=== PATIENT | male | born 1940 | race Caucasian/White ===

== ENCOUNTER 2018-11-15 06:27 | Inpatient (IN) | payer MEDICARE, SELFPAY ==
[2018-11-01 08:39] VITALS: BMI 25.0
[2018-11-15] VITALS (13 sets, daily range): BP systolic 92–122; BP diastolic 58–78; PULSE 71–99; RESP 14–18; TEMP 36.1–36.7; O2SAT 91–99; BMI 25.0; BMI 26.9
--- NOTE | 2018-11-15 06:32 | DI.RAD.S_ITS ---
PROCEDURE: XR HIP W PEL IF DONE RT 2V INDICATIONS: prosthesis placement RIGHT HIP TECHNIQUE: AP pelvis was acquired. COMPARISON: None. FINDINGS: Bones: Patient is status post right hip arthroplasty, with hardware components in expected positions. The hip joint appears congruent. The visualized bony structures appear intact. Soft tissues: Overlying postoperative changes are noted. No suspicious soft tissue densities. IMPRESSION: Post right total hip arthroplasty with anatomic right hip alignment. Dictated by: Iker Conway M.D. on 11/15/2018 at 10:04 Approved by: Iker Conway M.D. on 11/15/2018 at 10:04
[2018-11-15] MEDS: LACTATED RINGERS 1,000 ML 42 ML IV ×2 (07:10→09:06)
[2018-11-15] MEDS: CELECOXIB 200 MG CAPSULE PO (07:15)
[2018-11-15] MEDS: PREGABALIN 75 MG CAPSULE PO (07:15)
[2018-11-15] MEDS: ACETAMINOPHEN 325 MG TABLET 975 MG PO (07:15)
[2018-11-15] MEDS: CEFAZOLIN 2 GM/100 ML FROZ.PIGGY IV ×3 (07:57→23:50)
--- NOTE | 2018-11-15 07:58 | PM.PREOP ---
Pre-operative Note Interval Note History & Physical reviewed/Exam performed by Physician: Yes Changes to H&P: No
[2018-11-15] MEDS: TRANEXAMIC ACID 1,000 MG VIAL 1000 MG INJ ×2 (08:21→09:22)
--- NOTE | 2018-11-15 08:31 | SUR.OPER ---
Lateral on padded OR bed. Gel axillary roll. Arms secured on padded armboard with pillow supporting top arm. Padded hip positioner braces x4 - anterior and posterior chest and pelvis. Additional gel pad used anterior pelvis. Gel pad under bottom leg from knee to foot and secured with tape over sheet.
[2018-11-15] MEDS: BUPIVACAINE 0.25% W/ EPI VIAL 50 ML INJ (08:37)
--- NOTE | 2018-11-15 09:59 | PC.NURSE ---
Day shift: Has not been on AC unit yet.
--- NOTE | 2018-11-15 10:10 | P.OP_ITS ---
Operative Date/Time/Diagnoses Date of procedure: 11/15/18 Time of procedure: 10:06 Pre-op diagnosis: Right hip degenerative joint disease Post-op diagnosis: same Procedure & Clinicians Procedure: Right total hip arthroplasty (CPT code 00526 with assistant gm of content & delivery) Same procedure as scheduled: Yes Indications: Patient is an 78-year-old male with severe right hip DJD. The patient has pain with activities and at rest, limited ambulation and activity tolerance, difficulties with ADLs, and failure of conservative treatment. We have discussed the nature of condition, treatment options, risks and benefits, and patient elects to proceed with total hip arthroplasty and gives informed consent. Surgeon: Ravin Meredith Health Care Coordinator: Subhash Petty Anesthesia Type: General and Spinal Operative Notes Closure Type: primary Specimen(s): none sent Implants & Drains: Acetabulum: [employer] R3 acetabular component size 54 mm Femoral component: [employer] Anthology stem size 8 with standard offset Femoral head: 36 mm + 0 cobalt chrome Estimated Blood Loss (mL): 100 Blood products transfused: none Procedure in detail: After satisfaction induction of anesthetic, and administration of IV antibiotics, the patient was positioned in the lateral decubitus position with all bony prominences well padded and pelvic position secured using a hip garage laborer positioning device. Right hip and lower extremity prepped and draped in the usual sterile fashion, 1st dose of intravenous tranexamic acid was administered, then a longitudinal incision was created centered over the greater trochanter and carried sharply through the skin and subcutaneous tissues down to the fascia farrukh which was divided longitudinally and retracted with a Charnley retractor. External rotators visualize, cut, tagged, and retracted posteriorly, then the capsule was cut in a T-type fashion with the corners tagged and retracted. Hip was dislocated and femoral neck cut made according to preoperative templating. Acetabular retractors then placed, and the acetabular labrum and osteophytes were excised. The acetabulum was then sequentially reamed to 53 mm with an excellent circumferential ream and fit with the trial. The trial component was removed and a permanent size 54 mm Lawrence [employer]hew R3 acetabular component was selected, positioned, and impacted with satisfactory position and fixation achieved. Permanent liner was then inserted with the elevated lip directed posteriorly. Soft tissue then removed off the lateral femoral neck in the lateral neck was entered using a box osteotome. T-handled reamers placed down the canal followed by sequential broaching to 8 with the final broach left in place for trial reduction which demonstrated excellent leg length, range of motion, and stability characteristics with a 36 mm +0 trial ball. The trial and broach were removed, and a permanent size 8 [employer] Anthology stem was selected and inserted with excellent position and fixation achieved. Another trial reduction yielded the above characteristics so the trial ball was exchanged for a permanent 36 mm +0 cobalt chrome ball. The hip was irrigated and reduced and excellent leg length range of motion and stability characteristics were achieved and maintained. Periarticular tissues were infiltrated with Marcaine. The hip was copiously irrigated, and the capsule repaired with #2 Ethibond, and the piriformis was repaired back to the greater trochanter with the same. Fascia farrukh closed with interrupted #1 Ethibond sutures, and the subcutaneous tissues were closed in 2 layers of 0 Vicryl and 2 0 Vicryl. Skin was closed with mary alice and sterile dressings applied. Second dose of tranexamic acid was administered intravenously, and the anesthetic was terminated. Complications: none Condition: stable Disposition: PACU Plan for aftercare: Patient will be admitted to the acute care [facility], and anticipate discharge on postop day 1 with follow-up in office in 10-14 days. Outpatient physical therapy will be arranged and patient will continue to observe posterior hip precautions. Patient will continue use of postoperative Lovenox for 10 days postop.
--- NOTE | 2018-11-15 10:27 | PC.NURSE ---
Day shift: Arrived on unit at approx 1015 from PACu. A&Ox3. Spouse at bedside for support. VS WNL. CMS ok. PPP. Oriented to room and call light. Denies pain. Using I.S. as direct. He is ROSE PATH. Call light in reach. Agrees to not get OOB w/o help from staff.+
[2018-11-15] MEDS: LACTATED RINGERS 1,000 ML 125 ML IV ×2 (10:39→19:08)
--- NOTE | 2018-11-15 17:45 | PT.IIE ---
Current Diagnoses Unilateral primary osteoarthritis, right hip (11/15/18) Surgery Performed Operation Date: 11/15/18 07:45 Actual Procedures p Total Hip Arthroplasty(Right) - Ravin Meredith MD Surgical History (Last Updated 11/01/18 @ 09:26 by Eri Moreno RN) Hx of laminectomy (Acute) Hx of appendectomy (Acute) Hx of cholecystectomy (Acute) Hx of right inguinal hernia repair (Acute 09/06/18) Hx of tonsillectomy (Acute) Hx of transurethral resection of prostate (Acute) Status post cataract extraction of both eyes with insertion of intraocular lens (Acute) Medical History (Last Updated 11/01/18 @ 09:26 by Eri Moreno RN) Anxiety (Acute) Arthritis (Acute) Asthma (Acute) 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 (Acute) Depression (Acute) Elevated PSA (Acute) Impaired hearing (Acute) Nocturia associated with benign prostatic hyperplasia (Acute) Numbness (Acute) Pneumonia (Acute) Prostate cancer (Acute ~10/2010) Sleep disturbance (Acute) Syncope (Acute ~2012) Thinning of skin (Acute) Physical Therapy Inpatient Evaluation/Re-Eval M1 PT/OT-IP Prior Functional Status Start: 11/15/18 17:16 Freq: NEEDED Status: Active Protocol: Document 11/15/18 15:10 (Rec: 11/15/18 17:44 [email or web address]) Medical Review Prior Functional Status Medical History Reviewed Yes Communication no deficits noted Mobility and Gait pt is an indepedent ambulator at home and community without use of AD Activities of Daily Living and IADL's pt is indepedent for all ADLs and IADLs without use of AD. Social History Household Members spouse Living Arrangements House Number of Floors (Floors) One Floor Number of Stairs To Enter/Railing? 1 ALVARO and no stairs Home Environment Standard Height Toilet Walk in Shower Tub/Shower Home Equipment Front Wheel Walker Grab Bars Near Toilet Grab Bars In Shower Employment Status Retired Additional Social History Comment Pt lives with his at a 1 story house with 1STE. Pt is an independent ambulator at home and community without the need of AD. Pt and Pt's are both independent for ADLs and IADLs. But pt's uses a FWW for mobility due to LLD from hip replacement. Pt reports he might need to be CG if his 's mobility decline in the future. Pt also drives at this point. Pt expects to return to his outpatient PT , where he did his preop rehab, for post op rehab. M2 PT-IP Current Condition Start: 11/15/18 17:16 Freq: NEEDED Status: Active Protocol: Document 11/15/18 15:10 (Rec: 11/15/18 17:44 [email or web address]) Physical Therapy Current Condition Current Condition Evaluation Date 11/15/18 Treatment Diagnosis R RUTHIE, difficulty in walking, generalized muscle weakness Onset Date 11/15/18 Precautions Posterior Hip Precautions No Hip Flexion > 90 degrees No Hip Internal Rotation No Hip Adduction Weight Bearing Status Weight Bearing Status Weight Bear as Tolerated M3 PT-IP Subjective Start: 11/15/18 17:16 Freq: NEEDED Status: Active Protocol: Document 11/15/18 15:10 HH (Rec: 11/15/18 17:44 [email or web address]) Subjective Physical Therapy Visit Type Type Initial Evaluation Visit Start Time 15:10 Visit Stop Time 15:40 Total Visit Minutes 30 Notes Pt agreeable to mobilize with PT. Pt denies pain and ready to mobilize upon assessment. Pt was seen in bed with pillow between his LEs. Number of RISK MANAGEMENT CONSULTANT Visits 0 Physical Therapy Visit Comments Patient Comments I feel great and i dont feel any pain at all. Patient Goals To amb again and go home to retun to his previous outpatient PT for post op rehab Therapy Pain Assessment Pain When Pain Assessed During Exercise Pain Present Pain Present Denied Pain M4 PT-IP Mobility and Gait Start: 11/15/18 17:16 Freq: NEEDED Status: Active Protocol: Document 11/15/18 15:10 HH (Rec: 11/15/18 17:44 [email or web address]) PT-Bed Mobility Assessment Supine to Sit Supine to Sit Standby Assistance 1 Person Assistance Head of Bed Elevated Sit to Supine Sit to Supine Standby Assistance 1 Person Assistance Head of Bed Elevated Scooting Scooting to Edge of Bed Standby Assistance Scooting Up and Down in Bed Standby Assistance PT-Transfer Assessment Sit to and From Stand Sit to and from Stand Standby Assistance 1 Person Assistance Use of Upper Extremities Equipment Transfer Assistive Device Bed Rail Gait Belt Front Wheeled Walker Transfers Transfer Destination Bed Chair Toilet Transfer Technique Stand Step Pivot Transfer Ability Level of Assist Standby Assistance Comments Mobility Comments Pt requested to go to bathroom due to urge of voiding. Pt first performed supine to sit at EOB with the use of bed rails SBA. He then stand up and amb to bathroom and maintain static standing with a FWW for 5 mins SBA. Pt did not void at the end but he was able to maintain upright posture without LOB and signs of acute distress. Pt demonstrates understanding of post op precautions. He was able to sit to stand and stand to sit with a stagger stance without excessive R hip flexion. Pt navin transfer very well and denied pain at the end of tx session Gait Assessment Gait Gait Assistance Required: Standby Assistance 1 Person Assist Distance (Feet) 30 Able to Maintain Weight Bearing Status Yes During Gait Assistive Devices Assistive Device Gait Belt Standard Walker Gait Deviations General Gait Pattern Antalgic Decreased Stride Length Decreased Feet Clearance Step-to Gait Factors Limiting Gait Function Factors Limiting Gait Function Decreased Activity Tolerance Decreased Strength Limited Range of Motion Pain Comments Gait Comments Pt amb from EOB to bathroom for toileting, then back to room door and bedside chair x 3 rounds with without rest. Pt denies pain before and after tx session. Pt demonstrates step to gait pattern along with decreased stride length and feet clearance. Pt does require cues to facilitate even weight distribution along with heel strikes during initial contact. Pt appears navin tx well without signs of acute distress and pain. Stair Climbing Assessment Comments Stair Climbing Comments did not attempt PT-Balance Assessment Sitting Balance and Reactions Static Sitting Balance Ability Normal Dynamic Sitting Balance Ability Normal Standing Balance and Reactions Static Standing Balance Ability Good Dynamic Standing Balance Ability Good M5 PT-IP Objective Assessments Start: 11/15/18 17:16 Freq: NEEDED Status: Active Protocol: Document 11/15/18 15:10 (Rec: 11/15/18 17:44 [email or web address]) Orientation Orientation/Cognition Level of Alertness Alert Orientation Name Age Birthday Month Date Year Day of Week Place Situation Language Function Ability No Deficits Noted Safety Awareness Understands Safety Issues Memory Description No Deficits Noted Gross Range of Motion Upper Extremity ROM Assessment Within Functional Limits Lower Extremity ROM Assessment Right Impaired Strength Upper Extremity Strength Assessment Within Functional Limits Lower Extremity Strength Assessment Right Impaired Comments Strength Comments 3+/5 L hip MMT grossly Coordination Assessment Gross Coordination Gross Coordination WNL Sensation Assessment Sensation Gross Sensation WNL M6 PT-IP Treatment Start: 11/15/18 17:16 Freq: NEEDED Status: Active Protocol: Document 11/15/18 15:10 (Rec: 11/15/18 17:44 [email or web address]) Physical Therapy Treatment Exercises Exercises Ankle Pumps Gluteal Sets Quad Sets Heel Slides Straight Leg Raises Education Education Provided Precautions Weight Bearing Status Post-Op Packet Safety M7 PT-IP Assessment and Plan Start: 11/15/18 17:16 Freq: NEEDED Status: Active Protocol: Document 11/15/18 15:10 (Rec: 11/15/18 17:44 [email or web address]) PT Summary Assessment and Plan Potential Rehabilitation Potential Excellent Status of Condition at Evaluation Stable Summary Impairments Pain ROM Strength Balance Bed Mobility Transfers Gait Activity Tolerance Assessment Summary Pt is a very plesant and motivated 78 yo male who is post op R RUTHIE day 1. Upon assessment, Pt presents a very good understanding post op precautions and transfer techniques since he was a CG for his 's RUTHIE surgery. Pt presents slight difficulty in walking due to post op, but he is able to amb and transfer as navin without c/o pain today with SBA x 1p grossly. Pt does require cues for even weight distribution and R heel strikes during intial contact to optimaze gait efficiency. Pt will benefit from skilled PT to cont focus on gait training, transfer training and post op education. At this point, recommend d/c to home with outpatient PT for post op rehab due to his current WFL mobility and high PLOF. Goals Bed Mobility Goal Independent Transfer Goal Independent Gait Goal Independent Gait Distance 100 Other Goals navin 3 ALVARO with handrails without signs of LOB Days to Meet Goals 3 Frequency of Treatment Frequency Of Treatment Twice a Day Treatment Plan Physical Therapy Treatment Plan Bed Mobility Training Transfer Training Gait Training Therapeutic Exercise Balance Retraining Post Op Education Discharge Planning Hot or Cold Pack Other Recommendations and Next Treatment transfer, gait training as navin Focus facilitate heel strike on R LE Recommendations To Nursing Amount of Assist Needed Standby Assistance 1 Person Assist Discharge Recommendations PT Discharge Recommendations Home Outpatient PT
[2018-11-15] MEDS: TAMSULOSIN 0.4 MG CAPSULE 0.8 MG PO (20:41)
[2018-11-15] MEDS: TRAZODONE 50 MG TABLET PO (20:42)
[2018-11-15] MEDS: LORATADINE 10 MG TABLET PO (20:42)
[2018-11-15] MEDS: buPROPion 100 MG TABLET PO (20:42)
[2018-11-15] MEDS: ALPRAZolam 0.5 MG TABLET PO (20:43)
--- NOTE | 2018-11-16 02:30 | PC.NURSE ---
Manager Regional Note: 0010: Awake, resting in bed. Vital signs stable. Pt denies pain at this time. Assisted up to bathroom with walker, and was steady on his feet, tolerated activity well. IV in place in lt forearm with LR infusing at 125cc/hr. SCDs on. Bulky dressing to rt hip is cdi.
[2018-11-16] MEDS: LACTATED RINGERS 1,000 ML 125 ML IV (04:12)
[2018-11-16 04:46] VITALS: BP 102/61; PULSE 90; RESP 18; TEMP 36.4; O2SAT 98
[2018-11-16 05:57] LABS: Hematocrit 37.1 % (41-53); Hemoglobin 13.5 g/dL (13.5-17.5)
--- NOTE | 2018-11-16 07:29 | PM.DS.1 ---
History of Present Illness Date Patient Seen: 11/16/18 Time Patient Seen: 07:29 Chief complaint: right hip [id number] Narrative: Pain was 1/10 over night now to over 10. Denies fever chills. Has been up ambulating in the room. Patient was able to urinate on his own. Patient's is available to assist him at home. Patient does wish to go home today if safe to do so. Denies fever chills. No nausea vomiting. Discharge Providers Date of admission: 11/15/18 06:27 Primary care physician: Curt Miller MD Consults: 11/15/18 06:32 Consult to Anesthesiology Routine Comment: Consulting Provider: Anesthesiologist Reason for consultation: Regional block for post operative pain control 11/15/18 10:26 Consult to Discharge Planning Routine Comment: Consult to Physical Therapy Evaluate & Treat Comment: Physician Instructions: post op RUTHIE protocol Consult to Respiratory Therapy Evaluate & Treat Comment: Physician Instructions: Evaluate and treat Discharge provider: Subhash Petty PA-C Discharge Date: 11/16/18 Summary Discharge Diagnosis: Status post right total hip arthroplasty Hospital Course: Patient is an 78-year-old male with severe right hip DJD. The patient has pain with activities and at rest, limited ambulation and activity tolerance, difficulties with ADLs, and failure of conservative treatment. We have discussed the nature of condition, treatment options, risks and benefits, and patient elects to proceed with total hip arthroplasty and gives informed consent. Patient taken to the operating room underwent spinal general anesthesia. Right total hip arthroplasty completed without complication. Patient back in his room recovering well as in stable condition. Status at Discharge Functional status at discharge: uses cane/walker Overall status at discharge: patient is progressing back to baseline Time Spent with Patient Less than 30 minutes Exam Vital Signs (past 8 hours): - 11/15/18 23:53 11/16/18 04:46 Temperature 98.0 F 97.6 F Pulse Rate 99 H 90 Respiratory Rate 18 18 Blood Pressure 122/71 102/61 Pulse Oximetry 97 98 Oxygen Delivery Method Room Air Oxygen Flow Rate 0 Narrative Exam Narrative: Pleasant 78-year-old male resting comfortably in bed in no apparent distress. Right hip dressing is clean, dry and intact. Neurovascular status is intact to the distal right lower extremity. Objective Labs Result Diagrams: 11/16/18 05:28 Labs: Laboratory Results - last 24 hr 11/16/18 05:28 Hgb 13.5 Hct 37.1 L Discharge Plan Discharge Plan Patient Disposition: Home Discharge comment: DC home today after PT Discharge Med Rec/Prescriptions Prescriptions: Continue trazodone 50 mg Tablet 50 mg PO BEDTIME RF: 0 bupropion HCl 100 mg Tablet 100 mg PO BID RF: 0 alprazolam 0.5 mg Tablet 0.5 mg PO BEDTIME RF: 0 tamsulosin 0.4 mg Capsule 0.8 mg PO BEDTIME RF: 0 fluticasone 50 mcg/actuation [place],Suspension 2 spray INTRANASAL BID RF: 0 loratadine [Allerclear] 10 mg Tablet 10 mg PO BID RF: 0 fluticasone-salmeterol [Advair Diskus] 250-50 mcg/dose Blister With Device 1 inh INHALATION BID RF: 0 albuterol sulfate 90 mcg/actuation Hfa Aerosol Inhaler 2 puff INHALATION BID RF: 0 Discontinued ibuprofen 200 mg Capsule 400 mg PO TID-QID PRN (Reason: pain) RF: 0 Follow up/Referrals: Curt Miller MD [Primary Care Provider] - (follow up 1 wk) Ravin Meredith MD [Physician] - Provider Discharge Instructions Diet: Diet as Tolerated Activity: Weightbearing as tolerated, posterior hip precautions Cold/Heat Therapy: Apply ice to hip as needed Other treatments: Complete course of Lovenox and aspirin 81 mg b.i.d., 1000 mg of Tylenol 3 times daily, Mobic q.d. oxycodone and Vistaril as needed Skin/Wound/Dressing Care Report to your healthcare provider any signs of infection, such as:: chills, fever, increased pain, unusual drainage and unusual redness Dressing: Keep dressing clean and dry Discharge Data Primary Care Provider: Curt Miller Attending Provider: Ravin Meredith Admit Date/Time: 11/15/18 06:27
[2018-11-16 08:00] VITALS: BP 102/63; PULSE 97; RESP 16; TEMP 36.5; O2SAT 96
[2018-11-16] MEDS: ENOXAPARIN 40 MG/0.4 ML SYRINGE SUBCUT (09:05)
[2018-11-16] MEDS: buPROPion 100 MG TABLET PO (09:07)
[2018-11-16] MEDS: LORATADINE 10 MG TABLET PO (09:07)
[2018-11-16] MEDS: FLUTICASONE/SALMETEROL 250/50 14 PUFF DISKUS INH (09:10)
[2018-11-16] MEDS: IBUPROFEN 400 MG TABLET PO (09:10)
--- NOTE | 2018-11-16 10:11 | PT.IPTN ---
Current Diagnoses Unilateral primary osteoarthritis, right hip (11/15/18) Surgery Performed Operation Date: 11/15/18 07:45 Actual Procedures p Total Hip Arthroplasty(Right) - Ravin Meredith MD Physical Therapy Treatment Note M2 PT-IP Current Condition Start: 11/15/18 17:16 Freq: NEEDED Status: Active Protocol: Document 11/15/18 15:10 HH (Rec: 11/15/18 17:44 [id number]) Physical Therapy Current Condition Current Condition Evaluation Date 11/15/18 Treatment Diagnosis R RUTHIE, difficulty in walking, generalized muscle weakness Onset Date 11/15/18 Precautions Posterior Hip Precautions No Hip Flexion > 90 degrees No Hip Internal Rotation No Hip Adduction Weight Bearing Status Weight Bearing Status Weight Bear as Tolerated M3 PT-IP Subjective Start: 11/15/18 17:16 Freq: NEEDED Status: Active Protocol: Document 11/16/18 10:06 RS (Rec: 11/16/18 10:11 RS [email or web address]) Subjective Physical Therapy Visit Type Type Discharge Summary Visit Start Time 08:48 Visit Stop Time 09:15 Total Visit Minutes 27 Physical Therapy Visit Comments Patient Comments Pt reports doing well, looking forward to going home today. Therapy Pain Assessment Pain When Pain Assessed At Rest Pain Present Pain Present Denied Pain M4 PT-IP Mobility and Gait Start: 11/15/18 17:16 Freq: NEEDED Status: Active Protocol: Document 11/16/18 10:06 RS (Rec: 11/16/18 10:11 RS [email or web address]) PT-Transfer Assessment Sit to and From Stand Sit to and from Stand Independent Equipment Transfer Assistive Device Front Wheeled Walker Transfers Transfer Destination Bed Chair Transfer Technique walked Transfer Ability Level of Assist Independent Gait Assessment Gait Gait Assistance Required: Independent Distance (Feet) 270 Assistive Devices Assistive Device Gait Belt Standard Walker Gait Deviations General Gait Pattern Decreased Stride Length Factors Limiting Gait Function Factors Limiting Gait Function Decreased Activity Tolerance Decreased Strength Limited Range of Motion Pain Comments Gait Comments more symmetrical with cues, very steady, no limp. Stair Climbing Assessment Evaluation Level of Assist On Stairs Standby Assistance Devices Stair Climbing Assistive Devices Front Wheel Walker Technique/Endurance Stair Climbing Direction Ascend and Descend Stair Climbing Technique Step to Step Number of Steps Climbed 1 Query Text: Stair Climbing Set # Repetitions (reps) 1 PT-Balance Assessment Sitting Balance and Reactions Static Sitting Balance Ability Normal Dynamic Sitting Balance Ability Normal Standing Balance and Reactions Static Standing Balance Ability Good Dynamic Standing Balance Ability Good M5 PT-IP Objective Assessments Start: 11/15/18 17:16 Freq: NEEDED Status: Active Protocol: Document 11/15/18 15:10 (Rec: 11/15/18 17:44 [email or web address]) Orientation Orientation/Cognition Level of Alertness Alert Orientation Name Age Birthday Month Date Year Day of Week Place Situation Language Function Ability No Deficits Noted Safety Awareness Understands Safety Issues Memory Description No Deficits Noted Gross Range of Motion Upper Extremity ROM Assessment Within Functional Limits Lower Extremity ROM Assessment Right Impaired Strength Upper Extremity Strength Assessment Within Functional Limits Lower Extremity Strength Assessment Right Impaired Comments Strength Comments 3+/5 L hip MMT grossly Coordination Assessment Gross Coordination Gross Coordination WNL Sensation Assessment Sensation Gross Sensation WNL M6 PT-IP Treatment Start: 11/15/18 17:16 Freq: NEEDED Status: Active Protocol: Document 11/15/18 15:10 (Rec: 11/15/18 17:44 [email or web address]) Physical Therapy Treatment Exercises Exercises Ankle Pumps Gluteal Sets Quad Sets Heel Slides Straight Leg Raises Education Education Provided Precautions Weight Bearing Status Post-Op Packet Safety M7 PT-IP Assessment and Plan Start: 11/15/18 17:16 Freq: NEEDED Status: Active Protocol: Document 11/16/18 10:06 RS (Rec: 11/16/18 10:11 RS [email or web address]) PT Summary Assessment and Plan Potential Rehabilitation Potential Excellent Status of Condition at Evaluation Stable Summary Progress Towards Goals Safe For Discharge Goals Met Assessment Summary Pt is POD#2 R post RUTHIE. Pt's gait quality and tolerance have significantly improved since yesterday. Pt is mod ind with FWW for all mobility and is safe to discharge home later today when medically ready. Pt has no other acute PT goals, will sign off. Goals Bed Mobility Goal Independent Transfer Goal Independent Gait Goal Independent Gait Distance 100 Other Goals navin 3 ALVARO with handrails without signs of LOB Days to Meet Goals 0 Frequency of Treatment Frequency Of Treatment Discharge Recommendations To Nursing Amount of Assist Needed Independent Discharge Recommendations PT Discharge Recommendations Home Outpatient PT
--- NOTE | 2018-11-16 12:16 | CM.DANOTE ---
Discharge Planning/Care Management Advanced directive, confirm from FAMILY Start: 11/15/18 11:01 Freq: Q24H Status: Active Protocol: Document 11/15/18 11:01 YAD (Rec: 11/15/18 11:01 YAD [email or web address]) Advance Directive, confirm on record Time 11:01 Person contacted spouse Copy received No CM Discharge Assessment Start: 11/16/18 12:13 Freq: Status: Active Protocol: Document 11/16/18 12:14 (Rec: 11/16/18 12:16 [id number]) Discharge Planning Assessment Assigned Medical Voucher Clerk LISA [place] Advance Directives? Yes Advance Directives on File No History Provided By Patient Significant Other Medical Record Has Patient been admitted in last 30 No days? Prior Living Arrangements House Household Members spouse Type of transporation used prior to Drives own vehicle admit Independent with ADL's Yes Is patient alert and oriented? Yes Caregiver for Another No Patient/Family Preference OP PT Therapy Comment OP PT set up at [facility] in Barriers to Discharge No Discharge Plan Home Community Services Physical Therapy Transportation Arrangement will bean picker patient today. Additional Comment Patient to discharge home today. Patient is agreeable and has no concerns or needs at this time. Whiteboard Updated in Patient Room with Yes name and ext. # of Medical Voucher Clerk Please Provide Date Initial DC 11/16/18 Assessment Was Performed Pre-Anesthesia Assessment Start: 11/01/18 08:39 Freq: Status: Complete Protocol: Document 11/01/18 08:39 CAB (Rec: 11/01/18 09:41 CAB [id number]) Pre-Anesthesia Assessment Patient Information Reviewed Via Phone Assessment Assessment Completed With Patient H&P Completed Within 30 Days Yes Lab Results BMP/CMP CBC EKG Urinalysis Primary Care Provider Curt Miller Seen Specialist in Last 12 Months Yes Specialist Seen ENT Orthopedist Urologist Primary Language Hebrew Toll Gate Keeper Required No Height 172.72 cm Weight 74.843 kg Body Mass Index (BMI) 25.0 Hearing Ability Hard of Hearing Use of Hearing Aid Visual Assist Glasses Dentition Type Teeth, Natural Present Other Aids No Hx Anesthesia Reactions No Hx Family Anesthesia Reaction No Hx Malignant Hyperthermia No Hx Blood Transfusions No Anesthesia Review Requested No Furniture Repair Technician No alcohol intake current alcohol intake frequency 0-2 drinks per day Smoking Status Former smoker Tobacco type cigarettes pipe cigars Smoking packs per day 0.5 how long ago did patient quit smoking Quit 40 years ago Smoking pack-years 10 Substance Use Type marijuana Comment Pt advised not to use marijuana 24 hours prior to surgery Pain Present Pain Reported Musculoskeletal Symptoms Abnormal Gait Difficulty Walking Joint Pain Limited Range of Motion History of Falling (Recent or History of No ) Patient is completely paralyzed or No completely immobile Mental Status Oriented to own ability Is patient on oxygen? No Does patient have DAWSON/SOB No Hx Sleep Apnea No Suspected Sleep Apnea No Currently Taking a Beta Patrice No Can You Climb a Flight of Stairs Without Yes SOB Hx Chest Pain No Hx SOB No Hx Syncope or Dizziness Yes: syncopal episode approx 5 years ago Anti-Coagulant Therapy No Has a Shale Miner Blasting No Cardiac Testing No Hx Pacemaker/ICD No Pacemaker Rep Required? No Cardiac Clearance Received Not Applicable Diet Type At Home Regular dysphagia No Genitourinary Symptoms Change in Urinary Stream Bladder Pattern Nocturia Urinary Catheter Present No Hx Urinary Self Catheterization No Comment Hx Prostate cancer w/TURP, radiation treatment Diabetes No Hx Drug Resistant Organism No Presence of External or Internal Medical No Devices Have you traveled outside the [facility] in the last 30 days? Marital Status Lives With spouse Prior Living Arrangements House Number of Floors (Floors) One Floor Number of Stairs To Enter/Railing? 1 stair, no railing Support System Child/Children Spouse Does the Patient Have Assistance After Yes Surgery Patient Discharge Plan Description Return Home Comment Pt not advised on length of stay per surgeon's office Feels Safe in Current Environment Yes Been Physically Hurt or Threatened By a No Person in Current Environment Do you have thoughts of harming yourself None or others? Are you currently considering suicide? No Do you have a plan to hurt yourself or No Plan others? Do You Have Any Spiritual Beliefs That No May Affect Your HC Choices? Do You Have Any Cultural Practices That No May Affect Your HC Choices? Spiritual Referral None Who Can We Speak to About Patient's Care Family, friends Identifying Code for Release of Patient Declines to issue Information Health Care Proxy/Next of Kin Tea () Health Care Proxy Emergency Contact Name Tea () Advance Directives? Yes Advance Directives on File No Requested Patient Bring Advanced Yes Directives DOS Power of Chain Sales Consultant Yes Power of Chain Sales Consultant Name Tea () Power of Chain Sales Consultant PAC Instructions Durable medical equipment Medications to take/avoid Nasal antibiotic No ETOH/petroleum product on skin DOS NPO Ortho class Pre-surgical wash Sturdy shoes/comfortable clothes Do not bring valuables and remove jewelry
--- NOTE | 2018-11-16 12:34 | PC.NURSE ---
Pt ready for discharge home. Went over d/c instructions with Pt and Spouse. Discussed d/c meds, time of last dose, reviewed stroke education and lovenox administration. Pt denies further questions and was taken out via w/c by ELECTRIC CLOCK MECHANIC to POV with spouse and all belongings.
== END 2018-11-16 12:40 | disposition home or self-care (01) | DRG 470 ==
PROVIDERS: Admitting Provider Orthopaedic Surgery; PCP Family Medicine; Visit Provider Orthopaedic Surgery
PROC: 0SR90JZ Replacement of Right Hip Joint with Synthetic Substitute, Open Approach (ICD-10-PCS; CPT 27130; principal; 2018-11-15 07:45)
DX: M16.11 Unilateral primary osteoarthritis, right hip (principal); F32.9 Major depressive disorder, single episode, unspecified; J45.909 Unspecified asthma, uncomplicated
CPT/HCPCS: 36415; 73502; 85014; 85018; 97110; 97116; 97161; 97530; C1776; J0690; J1100; J1650; J2250; J2274; J2405; J2704; J3010